=== PATIENT | female | born 1985 | race African-American/Black ===

== ENCOUNTER 2017-01-11 17:43 | Emergency (ER) | payer SELFPAY ==
[2017-01-11 20:16] LABS: INFLUENZA A SCREEN NEGATIVE (NEGATIVE); INFLUENZA B SCREEN NEGATIVE (NEGATIVE)
== END 2017-01-11 23:00 | disposition left against medical advice (07) ==
LOC: ER 17:43
PROVIDERS: Nurse Practitioner
DX: Z53.21 Procedure and treatment not carried out due to patient leaving prior to being seen by health care provider (principal)
CPT/HCPCS: 87804

== ENCOUNTER 2017-02-28 09:40 | Emergency (ER) | payer SELFPAY ==
[2017-02-28 09:45] LABS: BASOPHILS 0.3 %; BASOPHILS ABSOLUTE 0.01 10/3/uL (0.0-0.16); EOSINOPHILS 2.3 %; EOSINOPHILS ABSOLUTE 0.08 10/3/uL (0.0-0.53); HEMATOCRIT 37.4 % (36.0-48.0); HEMOGLOBIN 12.9 g/dL (12.0-16.0); LYMPHOCYTES 37.3 %; LYMPHOCYTES ABSOLUTE 1.28 10/3/uL (0.67-4.30); MEAN CORPUS HGB CONC 34.5 g/dL (32.0-36.0); MEAN CORPUSCULAR HEMOGLOB 29.3 pg (26.0-34.0); MEAN PLATELET VOLUME 11.1 fL (9.2-13.0); MONOCYTES 7.3 %; MONOCYTES ABSOLUTE 0.25 10/3/uL (0.21-1.20); NEUTROPHILS 52.8 %; NEUTROPHILS ABSOLUTE 1.81 10/3/uL (2.02-8.40); PLATELET COUNT 258 10/3/uL (150-400); RBC DISTRIBUTION WIDTH 13.1 % (12.0-16.0); WHITE BLOOD CELLS 3.4 10/3/uL (4.5-10.5)
[2017-02-28 09:46] LABS: ER CBC TAT 0 Hrs 05 Mins; MANUAL DIFF NO %
[2017-02-28 09:50] LABS: ASCORBIC ACID (UR NOT ORDER) NEG (NEG); BILIRUBIN, URINE NEGATIVE (NEG); ER URINALYSIS TAT 0 Hrs 10 Mins; KETONE, URINE NEGATIVE (NEG); LEUKOCYTE ESTERASE(NOT OR TRACE (NEG); NITRITE (URINE) NEG (NEG); WBC (NOT ORDERED) (RFLEX) 2 (0-5)
[2017-02-28 10:07] LABS: A/G RATIO 1.1 (0.7-1.9); ALBUMIN 3.8 G/DL (3.5-5.0); ALKALINE PHOSPHATASE 70 U/L (45-117); BUN (BLOOD UREA NITROGEN) 11 MG/DL (6-23); CALCIUM, SERUM 8.8 MG/DL (8.5-10.4); CHLORIDE, SERUM 108 MMOL/L (96-112); CO2 (CARBON DIOXIDE) 29 MMOL/L (24-34); CREATININE 0.92 MG/DL (0.55-1.02); GFR AFRICAN AMERICAN 96 ML/MIN (>=60); GFR NON AFRICAN AMERICAN 83 ML/MIN (>=60); GLOBULIN 3.4 G/DL (2.5-4.1); GLUCOSE, SERUM 86 MG/DL (60-99); POTASSIUM, SERUM 3.9 MMOL/L (3.5-5.3); SGOT(AST) 10 U/L (5-40); SGPT(ALT) 22 U/L (5-65); SODIUM, SERUM 141 MMOL/L (135-148); TOTAL BILIRUBIN 0.4 MG/DL (0-1.2); TOTAL PROTEIN 7.2 G/DL (6.0-8.5)
[2017-03-01 09:46] LABS: CHLAMYDIA TRACH PCR NOT DETECTED (NOT DETEC); GC PCR NOT DETECTED (NOT DETECT); SOURCE: FEMALE URINE
== END 2017-02-28 12:10 | disposition home or self-care (01) ==
LOC: ER 09:40
PROVIDERS: Emergency Medicine
DX: N94.6 Dysmenorrhea, unspecified (principal); Z88.5 Allergy status to narcotic agent; Z88.8 Allergy status to other drugs, medicaments and biological substances
CPT/HCPCS: 74176; 80053; 81001; 83690; 84703; 85025; 87210; 87491; 87591; 87661; 99284